=== PATIENT | female | born 1955 | race Caucasian/White ===

== ENCOUNTER 2018-02-12 03:40 | Emergency (ER) | payer OTHER ==
--- NOTE | 2018-02-12 03:56 | PDOC ---
Attending Attestation - Resident Resident Name: Del Yu - ED Attending Attestation I have performed the following: I have examined & evaluated the patient, The case was reviewed & discussed with the resident, I agree w/resident's findings & plan - HPI HPI: 02/13/18 02:02 Pt comes with a persistent cough; states that her had the same and that he is now getting better with a zpak; she wants to make sure that she doesn't have a pneumonia, - Physicial Exam PE: 02/13/18 02:03 Agree with resident exam - Medical Decision Making 02/12/18 06:13 Labs are normal and pt has a normal EKG. Pt will get a CXR. 02/12/18 06:13 Cardiac enzymes and BNP are normal. 02/13/18 02:03 Pt has no flu; she will be treated for an atypical pneumonia with a zpak. Stable to go home.
[2018-02-12 04:48] VITALS: TEMP 98.3; BMI 29.1
--- NOTE | 2018-02-12 05:16 | PDOC ---
History of Present Illness - General Chief Complaint: Cold Symptoms Stated Complaint: PERSISTENT COUGH Time Seen by Provider: 02/12/18 03:44 History Source: Patient, Family Exam Limitations: No Limitations, Language Barrier - History of Present Illness Initial Comments: 02/12/18 05:06 Pt. is a 62 y.o. F w/ PMHx. of HTN and HLD presents to the ED with persistent cough. Pt. states that the cough has been getting progressively worse since it began spontaneously 4 days ago. Pt. notes that the cough is worse when lying flat and thus Pt. has been unable to fall asleep for more than a couple hours at a time. Pt. stated tat 2 days ago her cough was productive of yellow sputum but that now it is non-productive. Pt endorses getting Flu vaccine this year and denies any sick contacts. On further questioning Pt.s at bedside admitted to developing a similar cough around 4-5 days ago and was seen by his PCP on Tuesday who prescribed him Azithromycin for 7 days to god effect. Pt.'s endorses feeling better. Pt. endorses some difficulty swallowing especially since the cough began and subsequent sore throat. Pt. states she is uptodate on all her vaccines but does not recall having her titers checked for immunizations. Pt. denies post nasal drip, acid reflux or waking up with a hoarse throat. Pt. denies fever chills, nausea, vomiting, constipation, diarrhea , arthralgias or myalgias at this time. Pt.s states she had a runny nose initially but that has resolved. EKG, Cardiac profile and BNP ordered to r/o CHF CBC, BMP and CXR ordered to rule out pneumonia Timing/Duration: 1 week, getting worse Severity: moderate Associated Symptoms: reports: cough, shortness of breath. denies: diaphoresis, fever/chills, headaches, loss of appetite, malaise, nausea/vomiting, seizure Aspirin Received prior to arrival: Yes: no aspirin today Beta Kem Taken at Home(Core Measure): No Past History - Past Medical History Allergies/Adverse Reactions: Allergies Allergy/AdvReac Type Severity Reaction Status Date / Time codeine [Codeine] Allergy Verified 02/12/18 04:48 Penicillins Allergy Verified 02/12/18 04:48 Home Medications: Ambulatory Orders No Home Medications 0 dose .ROUTE UTDICT 10/11/11 Sulfamethoxazole/Trimethoprim [Bactrim *Ds*] 1 tab PO BID #14 tablet 10/14/11 Cardiac Disorders: No Hx Myocardial Infarction: No COPD: No CHF: No Diabetes: No GI Disorders: No Disorders: No HTN: Yes Hypercholesterolemia: Yes Lung CA: No - Surgical History Abdominal Surgery: No Appendectomy: No Cardiac Surgery: No Cholecystectomy: No Gastric Stapling: No GI Surgery: No Lung Surgery: No Neurologic Surgery: No Orthopedic Surgery: No - Immunization History Td Vaccination: Yes TDAP Vaccination: Yes Immunization Up to Date: Yes - Suicide/Smoking/Psychosocial Hx Smoking Status: No Smoking History: Never smoked Have you smoked in the past 12 months: No Number of Cigarettes Smoked Daily: 0 Information on smoking cessation initiated: No Hx Alcohol Use: No Drug/Substance Use Hx: No Review of Systems - Review of Systems Constitutional: No: Chills, Diaphoresis, Fever, Loss of Appetite, Night Sweats, Weakness HEENTM: Yes: Throat Pain, Throat Swelling. No: Eye Pain, Blurred Vision, Recent change in vision, Double Vision, Ear Discharge, Nose Pain Respiratory: Yes: Cough, Orthopnea, Shortness of Breath, SOB at Rest Cardiac (ROS): Yes: Chest Pain (because of persistent cough) ABD/GI: No: Constipated, Diarrhea, Nausea, Poor Appetite, Poor Fluid Intake, Vomiting : No: Burning, Dysuria, Discharge, Frequency, Flank Pain, Hematuria, Pain, Urgency Musculoskeletal: Yes: Muscle Pain (from coughing) *Physical Exam - Vital Signs Last Vital Signs Temp Pulse Resp BP Pulse Ox 98.3 F 82 22 H 153/84 97 02/12/18 03:40 02/12/18 03:40 02/12/18 03:40 02/12/18 03:40 02/12/18 03:40 - Physical Exam General Appearance: Yes: Nourished, Appropriately Dressed, Apparent Distress, Moderate Distress HEENT: positive: Normal Voice, Symmetrical, Pharyngeal Erythema, Tonsillar Erythema. negative: Tonsillar Exudate Neck: positive: Supple, Thyromegaly. negative: Tender, Lymphadenopathy (R), Lymphadenopathy (L) Respiratory/Chest: positive: Wheezing, Hyperresonant. negative: Normal Breath Sounds (Coarse BS), Accessory Muscle Use, Crackles Vascular Pulses: Dorsalis-Pedis (R): 2+, Doralis-Pedis (L): 2+ Gastrointestinal/Abdominal: positive: Normal Bowel Sounds. negative: Tender, Organomegaly, Guarding, Tenderness, Hernia Musculoskeletal: negative: CVA Tenderness Extremity: positive: Swelling. negative: Calf Tenderness Integumentary: positive: Normal Color, Dry, Warm Neurologic: positive: Fully Oriented, Alert, Normal Mood/Affect, Normal Response Moderate Sedation - Procedure Monitoring Vital Signs: Procedure Monitoring Vital Signs Temperature 98.3 F 02/12/18 03:40 Pulse Rate 82 02/12/18 03:40 Respiratory Rate 22 H 02/12/18 03:40 Blood Pressure 153/84 02/12/18 03:40 O2 Sat by Pulse Oximetry (%) 97 02/12/18 03:40 *DC/Admit/Observation/Transfer - Referrals Referrals: Benjamin Lowry MD [Primary Care Provider] - - Patient Instructions - Post Discharge Activity
[2018-02-12 05:44] LABS: HEMATOCRIT 38.8 % (32.4-45.2); HEMOGLOBIN 12.6 GM/dL (10.7-15.3); MCH 29.1 pg (25.7-33.7); MCHC 32.6 g/dl (32.0-36.0); MEAN CELL VOLUME 89.3 fl (80-96); MEAN PLT VOLUME 9.1 fl (7.5-11.1); PLATELET COUNT 177 K/MM3 (134-434); RBC 4.35 M/mm3 (3.60-5.2); RDW 13.5 % (11.6-15.6); WHITE BLOOD COUNT 11.6 K/mm3 (4.0-10.0)
[2018-02-12 06:07] LABS: ANION GAP 7 MMOL/L (8-16); BLOOD UREA NITROGEN 21 mg/dL (7-18); CALCIUM 8.2 mg/dL (8.5-10.1); CHLORIDE 108 mmol/L (98-107); CO2 26 mmol/L (21-32); CREATININE 0.6 mg/dL (0.55-1.3); GLUCOSE,RANDOM 107 mg/dL (74-106); MAGNESIUM 1.9 mg/dL (1.8-2.4); N-TERMINAL BNP 144.4 pg/ml (5-125); POTASSIUM 3.7 mmol/L (3.5-5.1); SODIUM 140 mmol/L (136-145)
--- NOTE | 2018-02-12 07:18 | PDOC ---
*Physical Exam - Vital Signs Last Vital Signs Temp Pulse Resp BP Pulse Ox 98.3 F 82 22 H 153/84 97 02/12/18 03:40 02/12/18 03:40 02/12/18 03:40 02/12/18 03:40 02/12/18 03:40 - Physical Exam Comments: 02/12/18 08:06 Gen: aaox3, coughing- dry cough heart: +s1s2 reg lungs: cta other than at the r base which has soft end expiratory wheezing abd: soft, nt/nd +bs ext: no c/c/e ED Treatment Course - LABORATORY CBC & Chemistry Diagram: 02/12/18 05:30 02/12/18 05:30 - ADDITIONAL ORDERS Additional order review: Laboratory Results 02/12/18 02/12/18 05:30 05:30 Sodium 140 Potassium 3.7 Chloride 108 H Carbon Dioxide 26 Anion Gap 7 L BUN 21 H Creatinine 0.6 Creat Clearance w eGFR > 60 Random Glucose 107 H Calcium 8.2 L Magnesium 1.9 Creatine Kinase 140 Troponin I < 0.02 B-Natriuretic Peptide 144.4 H 02/12/18 05:30 RBC 4.35 MCV 89.3 MCHC 32.6 RDW 13.5 MPV 9.1 Medical Decision Making - Medical Decision Making 02/12/18 07:17 62yo female with cough -pt signed out pending cxr pt with cough, also has a cough and is on azithromycin 02/12/18 08:07 pt with mildly elevated wbc pt with soft wheezing, pending cxr will give nebulizer and pending cxr 02/12/18 09:29 lungs cta after nebulizer feeling better pt requesting to go home will dc with azithromycin, albuterol, discussed mucinex otc, and tessalon perls *DC/Admit/Observation/Transfer Diagnosis at time of Disposition: Bronchitis - Discharge Dispostion Disposition: HOME Condition at time of disposition: Stable Decision to Admit order: No - Prescriptions Prescriptions: Albuterol Sulfate Inhaler - [Ventolin HFA Inhaler -] 1 - 2 inh PO Q4H PRN #1 inhaler PRN Reason: Wheezing Azithromycin [Zithromax 250mg Tablets -] 250 mg PO UTDICT #6 tab Benzonatate [Tessalon Pearls -] 100 mg PO TID PRN #15 capsule PRN Reason: Cough - Referrals Referrals: Benjamin Lowry MD [Primary Care Provider] - - Patient Instructions Printed Discharge Instructions: DI for Acute Bronchitis Additional Instructions: Please take all medications as prescribed. Please drink plenty of fluids. Please follow up with your PMD in 2 days. A chest xray was performed which did not show signs of pneumonia. Please return to the ED with any further concerns or complaints. Your influenza test was negative. - Post Discharge Activity
[2018-02-12] MEDS ORDERED: ALBUTEROL SO4 2.5/IPRATROPIUM 0.5 INH SOL 3 ML VIAL.NEB. NEB ONE ×2 (08:05→08:41)
[2018-02-12] MEDS ORDERED: AZITHROMYCIN 250 MG TABLET PO ONE (09:20)
[2018-02-12] MEDS ORDERED: AZITHROMYCIN 250 MG TABLET ONE (09:36)
[2018-02-12 09:55] VITALS: BP 127/79; PULSE 77
--- NOTE | 2018-02-13 07:15 | EKG ---
Test Reason : Blood Pressure : / mmHG Vent. Rate : 075 BPM Atrial Rate : 075 BPM P-R Int : 150 ms QRS Dur : 080 ms QT Int : 384 ms P-R-T Axes : 027 001 011 degrees QTc Int : 428 ms NORMAL SINUS RHYTHM NORMAL ECG WHEN COMPARED WITH ECG OF 11-OCT-2011 15:54, NO SIGNIFICANT CHANGE WAS FOUND Confirmed by EDOUARD PETERSON MD ([id number]) on 02/13/2018 7:15:25 AM Referred By: Confirmed By:EDOUARD PETERSON MD
== END 2018-02-12 09:55 | disposition home or self-care (01) ==
LOC: JER 03:40
PROC: 3E0F7GC Introduction of Other Therapeutic Substance into Respiratory Tract, Via Natural or Artificial Opening (ICD-10-PCS; principal; 2018-02-12)
DX: J40 Bronchitis, not specified as acute or chronic (principal)
CPT/HCPCS: 36415; 71045-TC-FY; 80048; 82550; 83735; 83880; 84484; 85027; 87804; 93005; 93010; 99282-25

== ENCOUNTER 2022-11-19 07:16 | Day surgery (SDC) | payer OTHER ==
[2022-11-16 17:40] VITALS: BMI 26.9
[2022-11-19] MEDS ORDERED: PROPOFOL 60 ML ONE (08:02)
[2022-11-19] MEDS ORDERED: LIDOCAINE HCL/PF 2% SDV 5ML VIAL ONE (08:02)
[2022-11-19] MEDS ORDERED: TRANEXAMIC ACID 1000 MG/10 ML VIAL ONE ×3 (08:02→12:13)
[2022-11-19] MEDS ORDERED: ONDANSETRON 4 MG/2 ML VIAL ONE ×2 (08:02→11:03)
[2022-11-19] MEDS ORDERED: MIDAZOLAM HCL 2 MG/2 ML SINGLE DOSE VIAL ONE (08:02)
[2022-11-19] MEDS ORDERED: ceFAZolin SODIUM 1 GM VIAL ONE (08:02)
[2022-11-19] MEDS ORDERED: SODIUM CHLORIDE 0.9% P/F 10 ML VIAL IJ ONE (08:40)
[2022-11-19] MEDS ORDERED: BUPIVACAINE LIPOSOME/PF (EXPAREL) 266 MG/20 ML VIAL ONE (08:40)
[2022-11-19] MEDS ORDERED: BUPIVACAINE HCL/PF 0.5% (5MG/ML) 10 ML VIAL ONE ×2 (08:40→09:36)
[2022-11-19] MEDS ORDERED: VANCOMYCIN 1,000 MG VIAL (RESTRICTED TO ID ONLY) ONE ×2 (09:07→10:29)
[2022-11-19] MEDS ORDERED: THROMBIN (BOVINE) 5,000 UNIT VIAL TP ONE (09:08)
[2022-11-19] MEDS ORDERED: BUPIVICAINE 0.25%/MORPH PF/KETOROLAC - 51ML DISP.SYRINGE IA ONE ×2 (11:50→12:33)
[2022-11-19] MEDS ORDERED: VANCOMYCIN 1,000 MG VIAL (RESTRICTED TO ID ONLY) IVPB ONE (12:22)
[2022-11-19] MEDS ORDERED: PROPOFOL 20 ML ONE (12:29)
[2022-11-19] MEDS ORDERED: MAG HYDROX/AL HYDROX/SIMETH 30 ML UNIT-DOSE CUP PO PRN (13:17)
[2022-11-19] MEDS ORDERED: oxyCODONE HCL 5 MG TABLET PO PRN ×2 (13:22)
[2022-11-19] MEDS ORDERED: ONDANSETRON 4 MG/2 ML VIAL IVPUSH PRN ×2 (13:22→19:25)
[2022-11-19] MEDS ORDERED: PROMETHAZINE HCL 25 MG/1 ML VIAL IVPB PRN (13:22)
[2022-11-19] MEDS ORDERED: ALBUTEROL SO4 HFA INHALER IH PRN (13:22)
[2022-11-19] MEDS ORDERED: ACETAMINOPHEN 1000 MG/100 ML BAG IVPB ONE (13:22)
[2022-11-19] MEDS ORDERED: LACTATED RINGERS SOLUTION 1,000 ML IV SCH ×2 (13:30)
[2022-11-19 15:18] VITALS: RESP 18
[2022-11-19] MEDS: CEFAZOLIN SODIUM 2 GM in DEXTROSE 5%-WATER 100 ML IVPB SCH (18:06)
[2022-11-19] MEDS: ASPIRIN 81 MG CHEWABLE TABLETS PO SCH (21:21)
[2022-11-19] MEDS: GABAPENTIN 300 MG CAPSULE PO SCH (21:21)
[2022-11-19] MEDS: ACETAMINOPHEN 500 MG TABLET (FP) PO SCH (21:21)
[2022-11-19] MEDS: oxyCODONE HCL 10 MG SUSTAINED ACTING TABLET PO SCH (21:22)
[2022-11-19] MEDS: SENNOSIDES/DOCUSATE COMBO (SENNA PLUS) TABLET (UD) PO SCH (21:23)
[2022-11-19] MEDS: ASCORBIC ACID 500 MG TABLET (FP) PO SCH (21:23)
[2022-11-19] MEDS ORDERED: PATIENT'S OWN MEDICATION (NON-FORMULARY) (Olmesartan Medoxomil [Benicar] 5 MG Tablet) PO SCH (22:00)
[2022-11-19] MEDS ORDERED: amLODIPine BESYLATE 5 MG TABLET (FP) PO SCH (22:00)
[2022-11-19] MEDS ORDERED: ATORVASTATIN CA 10 MG TABLET (FP) PO SCH (22:00)
[2022-11-20] MEDS: ACETAMINOPHEN 500 MG TABLET (FP) PO SCH ×2 (02:11→09:45)
[2022-11-20] MEDS: CEFAZOLIN SODIUM 2 GM in DEXTROSE 5%-WATER 100 ML IVPB SCH (02:11)
[2022-11-20 08:51] LABS: HEMATOCRIT 38.8 % (32.4-45.2); HEMOGLOBIN 12.6 G/dL (10.7-15.3); MCH 29.8 pg (25.7-33.7); MCHC 32.3 g/dl (32.0-36.0); MEAN CELL VOLUME 92.1 fl (80-96); MEAN PLT VOLUME 9.7 fl (7.5-11.1); RBC 4.21 10^6/uL (3.60-5.2); RDW 14.6 % (11.6-15.6); WHITE BLOOD COUNT 7.4 10^3/uL (4.0-10.8)
[2022-11-20 08:52] LABS: BLOOD UREA NITROGEN 16.5 mg/dl (7-18); CALCIUM 8.6 mg/dl (8.5-10.1); CREATININE 0.6 mg/dl (0.6-1.3); POTASSIUM 4.1 mmol/L (3.5-5.1)
[2022-11-20 09:12] VITALS: BP 115/55; PULSE 58; TEMP 98.6
[2022-11-20] MEDS: GABAPENTIN 300 MG CAPSULE PO SCH (09:45)
[2022-11-20] MEDS: SENNOSIDES/DOCUSATE COMBO (SENNA PLUS) TABLET (UD) PO SCH (09:46)
[2022-11-20] MEDS: ASPIRIN 81 MG CHEWABLE TABLETS PO SCH (09:48)
[2022-11-20] MEDS: ASCORBIC ACID 500 MG TABLET (FP) PO SCH (09:48)
[2022-11-20] MEDS: oxyCODONE HCL 10 MG SUSTAINED ACTING TABLET PO SCH (09:48)
[2022-11-20] MEDS ORDERED: PANTOPRAZOLE 40 MG TABLET PO SCH (10:00)
[2022-11-20] MEDS ORDERED: MULTIVITAMINS (DAILY MVI) TABLET (FP) PO SCH (10:00)
[2022-11-20] MEDS ORDERED: CELECOXIB 200 MG CAPSULE PO SCH (10:00)
== END 2022-11-20 13:23 | disposition home or self-care (01) ==
LOC: FASUSAT 07:16 → SUATTDRO 07:16 → FM/S 14:19 → FASUSAT 11-20 13:23
PROC: 8E0Y0CZ Robotic Assisted Procedure of Lower Extremity, Open Approach (ICD-10-PCS; 2022-11-19)
PROC: 0SRD0JA Replacement of Left Knee Joint with Synthetic Substitute, Uncemented, Open Approach (ICD-10-PCS; principal; 2022-11-19 11:03)
DX: M17.12 Unilateral primary osteoarthritis, left knee (principal)
CPT/HCPCS: 20985; 27447; C1776; S2900; 36415; 73560-TC-LT-FY; 80048; 85027; 88305-TC; 88311-TC; 94760; 97010-GP; 97116-GP; 97162-GP